=== PATIENT | male | born 1995 | race Caucasian/White ===

== ENCOUNTER 2021-01-09 02:17 | Emergency (ER) | payer BC ==
[~2021-01-09] VITALS: Ht 180.3 cm; Wt 90.7 kg
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
--- NOTE | 2021-01-09 02:52 | NUR ---
PT TAKEN TO CT VIA AMBULATION
--- NOTE | 2021-01-09 03:07 | NUR ---
PT RETURNED TO ER ROOM 1
--- NOTE | 2021-01-09 03:37 | NUR ---
Patient discharged to home in stable condition. Written and verbal after care instructions given. Patient verbalizes understanding of instruction. ambulatory with a steady gait. PT A/OX4.
[2021-01-09 03:39] VITALS: BP 137/81
== END 2021-01-09 03:40 | disposition home or self-care (01) ==
LOC: ER 02:23
DX: S00.81XA Abrasion of other part of head, initial encounter (principal); F10.129 Alcohol abuse with intoxication, unspecified; Y04.0XXA Assault by unarmed brawl or fight, initial encounter; Y93.89 Activity, other specified; Y92.89 Other specified places as the place of occurrence of the external cause; Y99.8 Other external cause status; Y90.9 Presence of alcohol in blood, level not specified
CPT/HCPCS: 70450-TC